=== PATIENT | female | born 1995 | race Caucasian/White ===

== ENCOUNTER → 2016-11-13 | Outpatient (CLI) | payer BC | LOC: CARD 14:08 | PROVIDERS: ATTEND Internal Medicine Cardiovascular Disease | DX: R00.2 Palpitations (principal); I10 Essential (primary) hypertension; Z82.41 Family history of sudden cardiac death | CPT/HCPCS: 93225; 93226 ==

== ENCOUNTER → 2016-12-03 | Outpatient (CLI) | payer BC | LOC: CARD 08:32 | PROVIDERS: ATTEND Internal Medicine Cardiovascular Disease | DX: I10 Essential (primary) hypertension (principal); R00.2 Palpitations; Z82.41 Family history of sudden cardiac death | CPT/HCPCS: 93306; 93351 ==

== ENCOUNTER → 2018-08-05 | Outpatient (CLI) | payer BC ==
--- NOTE | 2018-08-05 13:07 | Diagnostic Imaging Report ---
REASON FOR EXAM: RUQ ABD PAIN. COMPARISON: None. TECHNIQUE: Grayscale and Doppler ultrasound performed in the right upper quadrant of the abdomen to evaluate the liver and gallbladder. FINDINGS: The liver is normal in size and shape. The liver echogenicity is within normal limits. There are no focal lesions. No intrahepatic biliary dilatation is present. The common bile duct is not dilated and measures 4 mm. The main portal vein is hepatopetal. There is no evidence of cholelithiasis, gallbladder wall thickening or pericholecystic fluid. Sonographic Dejesus's sign is negative. The visualized portions of the head of the pancreas are within normal limits. The body and tail of the pancreas are not well visualized due to overlying bowel gas. The visualized portions of the IVC appear normal. The right kidney measures approximately 10.2 cm in length and has a normal appearance. IMPRESSION: 1. No cholelithiasis or acute cholecystitis. No liver or gallbladder abnormality detected. Dictated by: Dictated on workstation # [id number]
== END ==
LOC: RAD 10:40
PROVIDERS: ATTEND Nurse Practitioner Primary Care
DX: R10.11 Right upper quadrant pain (principal)
CPT/HCPCS: 76705

== ENCOUNTER → 2020-03-31 | Outpatient (CLI) | payer BC ==
--- NOTE | 2020-03-31 15:06 | Diagnostic Imaging Report ---
PROCEDURE: US Non-ob pelvis comp/trans. TECHNIQUE: Multiple realtime grayscale images were obtained of the pelvis in various projections endovaginally. Transabdominal imaging was also performed. INDICATION: Pelvic and perineal pain. COMPARISON: 06/01/2013. FINDINGS: The uterus measures 8.0 x 3.2 x 5.6 cm. The myometrium is normal in echogenicity without discrete mass. There is an echogenic IUD appropriately positioned in the mid upper endometrial cavity. This results in obscuration of the endometrium. The right ovary measures 3.2 x 2.1 x 2.0 cm. There are normal follicles present throughout the right ovary measuring less than a centimeter in size. Blood flow is present in the right ovary by color Doppler imaging. The left ovary is not seen due to surrounding bowel gas. Imaging of the left adnexa shows no concerning mass or fluid. IMPRESSION: 1. IUD is appropriately positioned within the uterus. 2. Normal right ovary. 3. Left ovary is not visualized due to surrounding bowel gas. Dictated by: Dictated on workstation # [id number]
== END ==
LOC: RAD 14:15
PROVIDERS: ATTEND Obstetrics & Gynecology
DX: R10.2 Pelvic and perineal pain (principal); R14.3 Flatulence
CPT/HCPCS: 76830; 76856

== ENCOUNTER → 2021-10-02 | Outpatient (CLI) | payer BC ==
--- NOTE | 2021-10-02 16:58 | Diagnostic Imaging Report ---
INDICATION: anatomy survey. TECHNIQUE: Multiple real-time grayscale images were obtained over the gravid uterus. COMPARISON: None. FINDINGS: The cervix is not well seen but grossly measures 3 cm in length. Placenta is posterior and fundal in position and there is no previa. Due to advanced gestational age, maternal adnexa are suboptimally evaluated. The following structures are visualized and normal: Cerebellar, cisterna magna, cerebral ventricles, four-chamber heart, umbilical cord insertion, stomach, left ventricular outflow tract, and spine. Biometrical measurements are as follows: Biparietal 4.92 cm, age 21 weeks 0 days. Head circumference 18.07 cm, age 20 weeks 4 days. Abdominal circumference 14.48 cm, age 19 weeks 6 days. Femur length 3.25 cm, age 20 weeks 1 days. Sonographic estimate age: 20 weeks 3 days. Sonographic estimated date of delivery: 02/16/2022. Estimated Weight: 329 gm (+/- 48 gm). LMP percentile: 48%. heart rate: 142 beats per minute. number: 1 of 1. IMPRESSION: Single live intrauterine has normal anatomy survey. Dictated by: Dictated on workstation # [id number]
== END ==
LOC: RAD 13:00
PROVIDERS: ATTEND Nurse Practitioner Women's Health
DX: Z34.02 Encounter for supervision of normal first pregnancy, second trimester (principal); Z3A.20 20 weeks gestation of pregnancy
CPT/HCPCS: 76805

== ENCOUNTER 2021-12-13 10:09 | Outpatient (CLI) | payer OTHER ==
[~2021-12-13] VITALS: Ht 178.2 cm; Wt 78.2 kg
[2021-12-13 10:45] VITALS: BP 113/72
[2021-12-13] MEDS ORDERED: ceFAZolin INJECTION 1,000 MG in NS (IVPB) 50 ML IV ONE (11:15)
[2021-12-13 11:28] LABS: BILIRUBIN,URINE NEGATIVE (NEGATIVE); CLARITY,URINE CLEAR; COLOR,URINE YELLOW; GLUCOSE, URINE (UA) NEGATIVE (NEGATIVE); KETONES,URINE NEGATIVE (NEGATIVE); LEUKOCYTE ESTERASE ,URINE NEGATIVE (NEGATIVE); NITRITE,URINE NEGATIVE (NEGATIVE); PH,URINE 7.5 (5-9); PROTEIN,URINE NEGATIVE (NEGATIVE)
[2021-12-13 11:44] LABS: BACTERIA,URINE NEGATIVE /HPF; RBC,URINE RARE /HPF; SQUAMOUS EPITHELIAL CELL,UR RARE /HPF; WBC,URINE RARE /HPF
[2021-12-13 12:29] LABS: BASOPHILS % (AUTO) 0 % (0-10); EOSINOPHILS # (AUTO) 0.1 10^3/uL (0.0-0.3); EOSINOPHILS % (AUTO) 1 % (0-10); HEMATOCRIT 32 % (35-52); HEMOGLOBIN 10.7 g/dL (11.5-16.0); LYMPHOCYTES # (AUTO) 1.7 10^3/uL (1.0-4.0); LYMPHOCYTES % (AUTO) 16 % (12-44); MEAN CORPUSCULAR HEMOGLOBIN 31 pg (25-34); MEAN CORPUSCULAR HGB CONC 33 g/dL (32-36); MEAN CORPUSCULAR VOLUME 93 fL (80-99); MEAN PLATELET VOLUME 9.3 fL (9.0-12.2); MONOCYTES # (AUTO) 0.7 10^3/uL (0.0-1.0); MONOCYTES % (AUTO) 6 % (0-12); NEUTROPHILS # (AUTO) 8.5 10^3/uL (1.8-7.8); NEUTROPHILS % (AUTO) 77 % (42-75); PLATELET COUNT 208 10^3/uL (130-400); WHITE BLOOD COUNT 11.1 10^3/uL (4.3-11.0)
[2021-12-13] MEDS: morphine INJ 4 MG/ML 1 ML (VIAL/SYRINGE) IVP PRN ×2 (12:40→15:30)
[2021-12-13 12:46] LABS: EOSINOPHILS % (MANUAL) 1 %; LYMPHOCYTES % (MANUAL) 13 %; MONOCYTES % (MANUAL) 6 %; NEUTROPHILS % (MANUAL) 80 %; RBC MORPH NORMAL
[2021-12-13] MEDS ORDERED: ONDANSETRON 4 MG/2 ML (SDV) Z0FRAN IVP PRN (13:00)
[2021-12-13] MEDS: NS IV 1000 ML 1,000 ML IV SCH ×2 (13:03→16:15)
[2021-12-13 13:20] VITALS: BP 117/68
[2021-12-13 14:39] VITALS: BP 113/72
[2021-12-13 15:10] LABS: ALBUMIN 3.2 GM/DL (3.2-4.5); BILIRUBIN,TOTAL 0.2 MG/DL (0.1-1.0); CALCIUM 8.7 MG/DL (8.5-10.1); CREATININE SERUM 0.65 MG/DL (0.60-1.30); POTASSIUM 3.5 MMOL/L (3.6-5.0); TOTAL PROTEIN 6.2 GM/DL (6.4-8.2)
[2021-12-13 15:30] VITALS: BP 111/67
--- NOTE | 2021-12-13 16:43 | History & Physical-OB ---
OB - Chief Complaint & HPI Date/Time Date of Admission: Date of Admission: Date seen by a Provider: Dec 13, 2021 Time Seen by a Provider: 12:55 Chief Complaint/History OB-Reason for Admission/Chief: Hx : 1 Hx Para: 0 Expected Date of Delivery: Feb 19, 2022 Gestational Age in Weeks: 30 Gestational Age in Days: 2 Other reason for admission: Patient presents with bilateral flank pains and micro hematuria Admission Nurse Assessment Rev: Yes Allergies and Home Medications Allergies Coded Allergies: Sulfa (Sulfonamide Antibiotics) (Verified Allergy, Severe, Anaphylaxis, 12/13/21) codeine (Verified Allergy, Mild, Itching, 12/13/21) Pt reports itching and vomiting with Codeine after wisdom teeth removal in 2010 Patient Home Medication List Home Medication List Reviewed: Yes OB - History Hx of Present Care: Yes Ultrasounds: Normal mid trimester US Obstetrical Complications: None Medical Complications: None Obstetrical History Hx : 1 Hx Para: 0 Hx Total # of Abortions (Spona: 0 Patient Past Medical History n/a Social History/Family History Alcohol Use: Denies Use Recreational Drug Use: No 2nd Hand Smoke Exposure: No Immunizations Influenza Vaccine Up-to-Date: Yes; Up-to-Date OB - Admission Exam Physical Exam Vitals: Vital Signs 12/13/21 15:30 Temp 36.3 Pulse 82 Resp 16 B/P (MAP) 111/67 (82) Pulse Ox 100 O2 Delivery Room Air HEENT: NCAT Heart: Rhythm Normal Lungs: Crackles Abdomen: Gravid Extremities: Normal Reflexes: Normal Heart Rate: 130's Accelerations: Accelerations Present Alf Variability: Average (6-25) Contractions on Admission: >10 Minutes Apart Intensity: Mild Labs Laboratory Tests Test 12/13/21 10:00 12/13/21 12:15 12/13/21 14:42 Range/Units Urine Color YELLOW Urine Clarity CLEAR Urine pH 7.5 5-9 Urine Specific [place] 1.010 L 1.016-1.022 Urine Protein NEGATIVE NEGATIVE Urine Glucose (UA) NEGATIVE NEGATIVE Urine Ketones NEGATIVE NEGATIVE Urine Nitrite NEGATIVE NEGATIVE Urine Bilirubin NEGATIVE NEGATIVE Urine Urobilinogen 0.2 < = 1.0 MG/DL Urine Leukocyte Esterase NEGATIVE NEGATIVE Urine RBC (Auto) NEGATIVE NEGATIVE Urine RBC RARE /HPF Urine WBC RARE /HPF Urine Squamous Epithelial Cells RARE /HPF Urine Crystals NONE /LPF Urine Bacteria NEGATIVE /HPF Urine Casts NONE /LPF Urine Mucus NEGATIVE /LPF Urine Culture Indicated NO White Blood Count 11.1 H 4.3-11.0 10^3/uL Red Blood Count 3.46 L 3.80-5.11 10^6/uL Hemoglobin 10.7 L 11.5-16.0 g/dL Hematocrit 32 L 35-52 % Mean Corpuscular Volume 93 80-99 fL Mean Corpuscular Hemoglobin 31 25-34 pg Mean Corpuscular Hemoglobin Concent 33 32-36 g/dL Red Cell Distribution Width 12.8 10.0-14.5 % Platelet Count 208 130-400 10^3/uL Mean Platelet Volume 9.3 9.0-12.2 fL Immature Granulocyte % (Auto) 1 % Neutrophils (%) (Auto) 77 H 42-75 % Lymphocytes (%) (Auto) 16 12-44 % Monocytes (%) (Auto) 6 0-12 % Eosinophils (%) (Auto) 1 0-10 % Basophils (%) (Auto) 0 0-10 % Neutrophils # (Auto) 8.5 H 1.8-7.8 10^3/uL Lymphocytes # (Auto) 1.7 1.0-4.0 10^3/uL Monocytes # (Auto) 0.7 0.0-1.0 10^3/uL Eosinophils # (Auto) 0.1 0.0-0.3 10^3/uL Basophils # (Auto) 0.0 0.0-0.1 10^3/uL Immature Granulocyte # (Auto) 0.1 0.0-0.1 10^3/uL Neutrophils % (Manual) 80 % Lymphocytes % (Manual) 13 % Monocytes % (Manual) 6 % Eosinophils % (Manual) 1 % Blood Morphology Comment NORMAL Sodium Level 137 135-145 MMOL/L Potassium Level 3.5 L 3.6-5.0 MMOL/L Chloride Level 106 98-107 MMOL/L Carbon Dioxide Level 20 L 21-32 MMOL/L Anion Gap 11 5-14 MMOL/L Blood Urea Nitrogen 4 L 7-18 MG/DL Creatinine 0.65 0.60-1.30 MG/DL Estimat Glomerular Filtration Rate 124 BUN/Creatinine Ratio 6 Glucose Level 94 70-105 MG/DL Calcium Level 8.7 8.5-10.1 MG/DL Corrected Calcium 9.3 8.5-10.1 MG/DL Total Bilirubin 0.2 0.1-1.0 MG/DL Aspartate Amino Transf (AST/SGOT) 19 5-34 U/L Alanine Aminotransferase (ALT/SGPT) 21 0-55 U/L Alkaline Phosphatase 121 40-136 U/L Total Protein 6.2 L 6.4-8.2 GM/DL Albumin 3.2 3.2-4.5 GM/DL OB - Assessment/Plan/Diagnosis Assessment Assessment: observation Admission Dx 26 yo G1 @ 30 weeks gestation Admission Status: Observation Reason for Inpatient Admission: Neprholithiasis Plan Plan: Other Other Plan IVF bolus Pain control Prophylactic antibiotics WIll discharge if improvement in symptoms. LOTUS VASQUEZ DO Dec 13, 2021 4:43 pm
[2021-12-13] MEDS ORDERED: CEPH500T PO (16:46)
[2021-12-13] MEDS ORDERED: ACHD5005 PO (16:46)
--- NOTE | 2021-12-13 17:04 | Diagnostic Imaging Report ---
PROCEDURE: US Renal Bilateral. TECHNIQUE: Multiple real-time grayscale images were obtained over the kidneys in various projections bilaterally. INDICATION: Flank pain Right kidney measures 11.9 x 6.1 x 5.0 cm. There is grade 2 hydronephrosis of the right kidney. There is a 6 mm calculus in lower pole calyx of the right kidney. Left kidney measures 11.0 x 5.8 x 4.3 cm. There is grade 1 hydronephrosis of the left kidney. There appears to be a 6 mL calculus in lower pole calyx of left kidney. Neither ureteral jet was seen in the bladder. IMPRESSION: Bilateral hydronephrosis with bilateral nephrolithiasis. Hydronephrosis appears to be slightly worse on the right than on the left. Dictated by: Dictated on workstation # [id number]
== END 2021-12-13 17:30 | disposition home or self-care (01) ==
LOC: WSo 10:09 → LDRP 10:09 → WSo 17:30
PROVIDERS: ATTEND Obstetrics & Gynecology
DX: N13.30 Unspecified hydronephrosis (principal); N20.0 Calculus of kidney
CPT/HCPCS: 36415; 76770; 80053; 81000; 85007; 85027

== ENCOUNTER 2021-12-28 12:30 | Outpatient (RCR) | payer OTHER ==
[~2021-12-28] VITALS: Ht 167.7 cm; Wt 78.2 kg
[~2021-12-28 12:30] MED LIST: ACHD5005 PO; CEPH500T PO
[2021-12-28] MEDS ORDERED: HYDROCORTISONE 100 MG/2 ML (Solu-CORTEF) VIAL IV PRN (13:00)
[2021-12-28] MEDS ORDERED: IRON DEXTRAN 25 MG/NS 6.25 ML TOTAL VOLUME IV ONE ×3 (13:00)
[2021-12-28] MEDS ORDERED: diphenhydrAMINE 50 MG/ML INJ (BENADRYL) IV PRN (13:00)
[2021-12-28] MEDS ORDERED: RT-ALBUTEROL SULF 2.5 MG/3 ML PRE-MIX VIAL IH PRN (13:00)
[2021-12-28] MEDS ORDERED: EPINEPHrine INJECTION 1 MG/ML AMP IM PRN (13:00)
[2021-12-28] MEDS ORDERED: IRON DEXTRAN 1,000 MG/NS 250 ML IVPB IV ONE ×2 (13:15)
[2021-12-28 13:18] VITALS: BP 127/69
[2021-12-28 13:23] VITALS: BP 126/81
[2021-12-28 13:30] VITALS: BP 127/80
[2021-12-28 13:45] VITALS: BP 130/81
[2021-12-28 14:00] VITALS: BP_SYST 121; BP_SYST 122; BP_DIAS 75
== END 2022-01-16 | disposition home or self-care (01) ==
LOC: SDC 12:30
PROVIDERS: ATTEND Obstetrics & Gynecology
DX: D64.9 Anemia, unspecified (principal)

== ENCOUNTER 2022-02-12 18:55 | Inpatient (IN) | payer OTHER ==
[~2022-02-12] VITALS: Ht 177.8 cm; Wt 84.1 kg
[2022-02-12 19:10] VITALS: BP 138/85
[2022-02-12] MEDS ORDERED: TERBUTALINE INJ 1 MG/ML (BRETHINE) AMP SC PRN (19:45)
[2022-02-12] MEDS ORDERED: NS IV 1000 ML 1,000 ML IV SCH (19:45)
[2022-02-12 20:00] VITALS: BP 138/85
[2022-02-12 20:15] LABS: BILIRUBIN,URINE NEGATIVE (NEGATIVE); CLARITY,URINE CLEAR; COLOR,URINE YELLOW; GLUCOSE, URINE (UA) NEGATIVE (NEGATIVE); KETONES,URINE NEGATIVE (NEGATIVE); LEUKOCYTE ESTERASE ,URINE NEGATIVE (NEGATIVE); NITRITE,URINE NEGATIVE (NEGATIVE); PROTEIN,URINE NEGATIVE (NEGATIVE)
[2022-02-12] MEDS: D5 LR IV SOLUTION 1,000 ML IV SCH (20:29)
[2022-02-12 20:32] LABS: BACTERIA,URINE FEW /HPF; SQUAMOUS EPITHELIAL CELL,UR 0-2 /HPF
[2022-02-12 20:35] VITALS: BP 124/78
[2022-02-12 21:27] LABS: BASOPHILS % (AUTO) 0 % (0-10); EOSINOPHILS % (AUTO) 0 % (0-10); HEMATOCRIT 34 % (35-52); HEMOGLOBIN 11.7 g/dL (11.5-16.0); LYMPHOCYTES # (AUTO) 1.9 10^3/uL (1.0-4.0); LYMPHOCYTES % (AUTO) 22 % (12-44); MEAN CORPUSCULAR HEMOGLOBIN 30 pg (25-34); MEAN CORPUSCULAR HGB CONC 34 g/dL (32-36); MEAN CORPUSCULAR VOLUME 88 fL (80-99); MEAN PLATELET VOLUME 9.4 fL (9.0-12.2); MONOCYTES # (AUTO) 0.4 10^3/uL (0.0-1.0); MONOCYTES % (AUTO) 4 % (0-12); NEUTROPHILS # (AUTO) 6.5 10^3/uL (1.8-7.8); NEUTROPHILS % (AUTO) 73 % (42-75); PLATELET COUNT 236 10^3/uL (130-400); WHITE BLOOD COUNT 8.9 10^3/uL (4.3-11.0)
[2022-02-12] MEDS ORDERED: CATHETER FLUSH 10 ML SYR IV SCH (22:00)
[2022-02-12] MEDS ORDERED: HYDROmorphone 2 MG/ML VIAL (DILAUDID) IV ONE (22:15)
[2022-02-12 22:25] VITALS: BP 120/81
[2022-02-12] MEDS: ONDANSETRON 4 MG/2 ML (SDV) Z0FRAN IVP PRN (22:32)
[2022-02-13] VITALS (74 sets, daily range): BP systolic 102–164; BP diastolic 41–93
[2022-02-13] MEDS: ONDANSETRON 4 MG/2 ML (SDV) Z0FRAN IVP PRN (01:35)
[2022-02-13] MEDS ORDERED: fentaNYL 2 mcg/ml BUPIVA 0.125 100 ML ONE (02:02)
[2022-02-13] MEDS: fentaNYL 2 mcg/ml BUPIVA 0.125 100 ML EPI SCH ×2 (02:52→10:30)
[2022-02-13] MEDS ORDERED: METOCLOPRAMIDE INJ 10 MG/2 ML (REGLAN) IV PRN (03:00)
[2022-02-13] MEDS ORDERED: NALOXONE 0.4 MG/ML 1 ML (NARCAN) VIAL IV PRN ×3 (03:00→16:30)
[2022-02-13] MEDS ORDERED: diphenhydrAMINE 50 MG/ML INJ (BENADRYL) IV PRN (03:00)
[2022-02-13] MEDS ORDERED: LACTATED RINGERS 1,000 ML IV SCH (03:00)
[2022-02-13] MEDS ORDERED: ONDANSETRON 4 MG/2 ML (SDV) Z0FRAN IV PRN (03:00)
[2022-02-13] MEDS: D5 LR IV SOLUTION 1,000 ML IV SCH ×2 (03:50→11:47)
[2022-02-13] MEDS ORDERED: OXYTOCIN PRE-MIX DRIP 500 ML IV ONE ×2 (07:45→16:14)
[2022-02-13] MEDS ORDERED: LIDOCAINE 1% INJ 20 ML VIAL ONE (07:45)
[2022-02-13] MEDS ORDERED: OXYTOCIN PRE-MIX DRIP 500 ML IV SCH ×2 (13:15→16:30)
[2022-02-13] MEDS ORDERED: PROMETHAZINE INJ 25 MG/ML (PHENERGAN) AMP IVP ONE (14:15)
[2022-02-13] MEDS ORDERED: CITRIC ACID/SOB CIT (BICITRA) 30 ML UDC ONE (16:03)
[2022-02-13] MEDS ORDERED: FAMOTIDINE 20MG/2ML IV (PEPCID) ONE (16:03)
[2022-02-13] MEDS ORDERED: METOCLOPRAMIDE INJ 10 MG/2 ML (REGLAN) ONE (16:03)
[2022-02-13] MEDS ORDERED: ceFAZolin INJECTION 2,000 MG ONE (16:03)
[2022-02-13] MEDS ORDERED: BUPIVACAINE 0.5% 30 ML (SENSORCAINE) VIAL ONE (16:05)
[2022-02-13] MEDS ORDERED: fentaNYL INJ 100 MCG/2 ML AMP ONE (16:05)
[2022-02-13] MEDS ORDERED: LIDOCAINE PF 2% 5 ML (XYLOCAINE) VIAL ONE ×2 (16:05→16:58)
[2022-02-13] MEDS ORDERED: NS (IVPB) 50 ML ONE (16:08)
--- NOTE | 2022-02-13 16:22 | History & Physical-OB ---
OB - Chief Complaint & HPI Date/Time Date of Admission: Date of Admission: Feb 12, 2022 at 18:55 Date seen by a Provider: Feb 13, 2022 Time Seen by a Provider: 07:15 Chief Complaint/History OB-Reason for Admission/Chief: Induction of Labor Hx : 1 Hx Para: 0 Expected Date of Delivery: Feb 19, 2022 Gestational Age in Weeks: 39 Gestational Age in Days: 0 Admission Nurse Assessment Rev: Yes History of Labs GBS neg Allergies and Home Medications Allergies Coded Allergies: Sulfa (Sulfonamide Antibiotics) (Verified Allergy, Severe, Anaphylaxis, 12/13/21) codeine (Verified Allergy, Mild, Itching, 12/13/21) Pt reports itching and vomiting with Codeine after wisdom teeth removal in 2010 iron dextran complex (Verified Allergy, Unknown, Itching, 12/28/21) Patient Home Medication List Home Medication List Reviewed: Yes Cephalexin (Cephalexin) 500 Mg Tablet, 500 MG PO QID Prescribed by: LOTUS VASQUEZ on 12/13/21 164 Hydrocodone/Acetaminophen (Hydrocodone-Acetamin 5-325 mg) 5 Mg-325 Mg Tablet, 1 TAB PO Q4H PRN for PAIN-MODERATE (5-7) Prescribed by: LOTUS VASQUEZ on 12/13/21 1646 OB - History Hx of Present Care: Yes Ultrasounds: Normal mid trimester US Obstetrical Complications: None Medical Complications: Genitourinary (nephrolithiasis) Patient Past Medical History n/a Social History/Family History 2nd Hand Smoke Exposure: No Immunizations Influenza Vaccine Up-to-Date: Yes; Up-to-Date OB - Admission Exam Physical Exam Vitals: Vital Signs 02/13/22 02/13/22 02/13/22 03:28 13:03 14:45 Temp 36.6 Pulse 88 Resp 18 B/P (MAP) 152/80 (104) Pulse Ox 100 O2 Delivery Room Air HEENT: NCAT Heart: Rhythm Normal Lungs: Clear Abdomen: Gravid Extremities: Normal Reflexes: Normal Cervical Dilatation: 1cm Effacement: 75% Station: -2 Membranes: Intact Heart Rate: 130's Accelerations: Accelerations Present Decelerations: No Decelerations Short Term Variability: Present [facility] Variability: Average (6-25) Contractions on Admission: 6-10 Minutes Apart Intensity: Moderate Bernal Scoring Tool (Modified) Dilation (cm): 1-2cm (1) Effacement (%): 51-79% (2) Descent/Station: -2 (1) Cervix Consistency: Soft (2) Cervix Position: Anterior (2) Bernal Score: 8 Labs Laboratory Tests Test 02/12/22 19:00 02/12/22 20:18 02/12/22 21:10 Range/Units Urine Color YELLOW Urine Clarity CLEAR Urine pH 7.0 5-9 Urine Specific [place] 1.015 L 1.016-1.022 Urine Protein NEGATIVE NEGATIVE Urine Glucose (UA) NEGATIVE NEGATIVE Urine Ketones NEGATIVE NEGATIVE Urine Nitrite NEGATIVE NEGATIVE Urine Bilirubin NEGATIVE NEGATIVE Urine Urobilinogen 0.2 < = 1.0 MG/DL Urine Leukocyte Esterase NEGATIVE NEGATIVE Urine RBC (Auto) TRACE-I H NEGATIVE Urine RBC 2-5 H /HPF Urine WBC NONE /HPF Urine Squamous Epithelial Cells 0-2 /HPF Urine Crystals NONE /LPF Urine Bacteria FEW H /HPF Urine Casts NONE /LPF Urine Mucus NEGATIVE /LPF Urine Culture Indicated YES White Blood Count 8.9 4.3-11.0 10^3/uL Red Blood Count 3.87 3.80-5.11 10^6/uL Hemoglobin 11.7 11.5-16.0 g/dL Hematocrit 34 L 35-52 % Mean Corpuscular Volume 88 80-99 fL Mean Corpuscular Hemoglobin 30 25-34 pg Mean Corpuscular Hemoglobin Concent 34 32-36 g/dL Red Cell Distribution Width 12.7 10.0-14.5 % Platelet Count 236 130-400 10^3/uL Mean Platelet Volume 9.4 9.0-12.2 fL Immature Granulocyte % (Auto) 1 % Neutrophils (%) (Auto) 73 42-75 % Lymphocytes (%) (Auto) 22 12-44 % Monocytes (%) (Auto) 4 0-12 % Eosinophils (%) (Auto) 0 0-10 % Basophils (%) (Auto) 0 0-10 % Neutrophils # (Auto) 6.5 1.8-7.8 10^3/uL Lymphocytes # (Auto) 1.9 1.0-4.0 10^3/uL Monocytes # (Auto) 0.4 0.0-1.0 10^3/uL Eosinophils # (Auto) 0.0 0.0-0.3 10^3/uL Basophils # (Auto) 0.0 0.0-0.1 10^3/uL Immature Granulocyte # (Auto) 0.1 0.0-0.1 10^3/uL OB - Assessment/Plan/Diagnosis Assessment Assessment: induction of labor Admission Dx 26 yo @ 39 weeks Elective IOL GBS neg Admission Status: Inpatient Order (span 2 midnights) Reason for Inpatient Admission: 39 induction of labor Plan Plan: Induction Induction Method: per Misoprostol Protocol LOTUS VASQUEZ DO Feb 13, 2022 16:22
--- NOTE | 2022-02-13 16:26 | Progress Note ---
Standard Progress Note Progress Notes/Assess & Plan Date Seen by a Provider: Feb 13, 2022 Time Seen by a Provider: 16:00 Progress/Assessment & Plan Patient admitted last night for elective IOL. Started on PO misoprostol overnight, given 2 doses. Received an epidural approx 2 am. This morning at approx 735, 7 cm dialated SROM had occured overnight. She progressed to 9 cm at approx 11am, and made no change of the following 5 hrs despite adequate contraction pattern and pitocin augmentation. Due to suspected CPD, and failure to progress patient requested to proceed with based on adequate indication. Risk reviewed and all questions answered. LOTUS VASQUEZ DO Feb 13, 2022 16:26
--- NOTE | 2022-02-13 16:28 | Discharge Inst-Women's Service ---
Discharge Inst-Women's Serv Depart Medication/Instructions New, Converted or Re-Newed RX: Transmitted to Pharmacy Final Diagnosis POD 2 PLTCS Problems Reviewed?: Yes Consults/Follow Up Additional Follow Up: Yes Orders/Referrals Dr. Vuong in 7-10 days and in 6 weeks Activity Activity: Activity as Tolerated Driving Instructions: No Driving for 1 Week NO SMOKING: NO SMOKING Nothing Inside Vagina: No Douching, No [place], No Tampons Diet Discharge Diet: No Restrictions Symptoms to Report to : Bleeding Excessive, Pain Increased, Fever Over 101 Degrees F, Vaginal Bleeding Increase, Questions/Concerns For Any Problems or Questions: Contact Your Physician Skin/Wound Care Infection Signs and Symptoms: Increased Redness, Foul Odor of Wound, Increased Drainage, Skin Itchy or Has a Rash, Increased Swelling, Temperature Above 101 F Operative Area Clean and Dry: Keep Incision Clean/Dry Stitches/[place]/Dermabond: Dermabond, Care of Stitches Bathing Instructions: LOTUS Meng DO Feb 13, 2022 16:28
[2022-02-13] MEDS ORDERED: TETANUS,DIPTH,PERTUSS P/F (BOOSTRIX) 0.5 ML VIAL IM SCH (16:30)
[2022-02-13] MEDS ORDERED: ACHD5005 PO (16:30)
[2022-02-13] MEDS ORDERED: DOCU100C37 PO (16:30)
[2022-02-13] MEDS ORDERED: MEASLES,MUMPS,RUBELLA 1 EA INJ SC SCH (16:30)
[2022-02-13] MEDS ORDERED: IBUP-844 PO (16:30)
[2022-02-13] MEDS ORDERED: ONDANSETRON 4 MG/2 ML (SDV) Z0FRAN IVP PRN (16:30)
[2022-02-13] MEDS ORDERED: ceFAZolin INJECTION 2,000 MG IV ONE (16:59)
[2022-02-13] MEDS ORDERED: MIDAZOLAM 2 MG/2 ML (VERSED) VIAL ONE (17:05)
[2022-02-13] MEDS ORDERED: LACTATED RINGERS 1,000 ML IV PRN ×2 (17:45)
[2022-02-13] MEDS ORDERED: FAMOTIDINE 20MG/2ML IV (PEPCID) IV ONE (17:45)
[2022-02-13] MEDS ORDERED: METOCLOPRAMIDE INJ 10 MG/2 ML (REGLAN) IV ONE (17:45)
[2022-02-13] MEDS ORDERED: CITRIC ACID/SOB CIT (BICITRA) 30 ML UDC PO ONE (17:45)
[2022-02-13] MEDS: KETOROLAC 30 MG/ML VIAL IV SCH (19:36)
[2022-02-13] MEDS: DOCUSATE SODIUM 100 MG (COLACE) CAP PO SCH (20:00)
[2022-02-13] MEDS: HYDROcodone/APAP 5 MG/325 MG (LORTAB) TAB PO PRN (20:57)
[2022-02-13] MEDS ORDERED: WITCH HAZEL(TUCKS) 40 EA JAR TOP PRN (21:45)
[2022-02-14 00:10] VITALS: BP 126/71
[2022-02-14] MEDS: KETOROLAC 30 MG/ML VIAL IV SCH ×3 (02:52→16:11)
[2022-02-14 03:00] VITALS: BP 134/76
--- NOTE | 2022-02-14 03:49 | OPERATIVE REPORT ---
PREOPERATIVE DIAGNOSES: 1. A 26-year-old at 39 weeks gestation. 2. Cephalopelvic disproportion. 3. Failure to progress. POSTOPERATIVE DIAGNOSES: 1. A 26-year-old at 39 weeks gestation. 2. Cephalopelvic disproportion. 3. Failure to progress. PROCEDURE: Primary low transverse section. SURGEON: Cas Vasquez DO EXTENSION FORESTER: Preethi Cope DNP, is necessary for manipulation, retraction throughout the procedure ANESTHESIA: Epidural, which was bolused. ESTIMATED BLOOD LOSS: 400 mL URINE OUTPUT: 190 mL clear at end of the procedure. FLUIDS: 900 mL lactated Ringer's solution. FINDINGS: Live female weighing 7 pounds 2 ounces, Apgars of 7 and 9. Grossly normal appearing uterus, bilateral fallopian tubes and ovaries. SPECIMENS SENT: None. INDICATIONS FOR PROCEDURE: This is a 26-year-old female is patient, who was admitted last night for induction of labor. Please see preoperative note for complete details pertaining to the patient's delivery, labor in detail. Once a diagnosis of failure to progress was reached, the patient was requesting to proceed with . I discussed with the patient, risk of all included with a . After all of her questions were answered, she was agreeable to proceed. Consent was obtained and the patient was taken to the operating room. OPERATIVE REPORT IN DETAIL: Once in the operating room, epidural analgesia was bolused and found to be adequate, was placed in a supine position with leftward tilt, prepped and draped in normal sterile fashion. A timeout was performed. Anesthesia was tested. I then make a Pfannenstiel skin incision with a knife and carried down to underlying fascia using Bovie cautery. The fascial incision extended laterally using Bovie cautery. Superior aspect of the fascial incision was then grasped with Yayo clamps, tented up and dissected off the underlying rectus muscles. The inferior aspect of the fascial incision was then grasped with Yayo clamps, tented up, and dissected off the underlying rectus muscles. The rectus muscles were dissected down to the midline using sharp dissection. We exposed the peritoneum, which was entered bluntly and extended using blunt traction. An [place] ring retractor was placed in the peritoneal incision, which offers excellent lateral sidewall retraction. I identified the lower uterine segment, which was found to be thinned out. I make a low transverse incision to the vesicouterine peritoneum and bluntly dissected off the lower uterine segment, creating a bladder flap. I then proceeded with myotomy until membranes were visualized, at which point, I extended the incision laterally and superiorly using bandage scissors. Amniotomy was performed in the process of doing this through the incision and the 's head was found in the vertex presentation. With gentle fundal pressure, the 's head was elevated up to the incision, which delivered through the incision. The nares and oropharynx were bulb suctioned. Anterior and posterior shoulders were delivered. The was brought to the operative field where the cord was doubly clamped and cut and was handed off to waiting nurses in attendance. Cord blood was collected. Three-vessel cord, intact placenta was delivered spontaneously thereafter. IV Pitocin was initiated to facilitate uterine contraction. Uterine fundus was firm with bimanual massage. The uterus was then exteriorized and cleared of all endometrial clots and debris. I then proceeded with closing the uterine incision using 0 Vicryl suture in a running locked fashion. Second layer of imbricating 0 Monocryl was placed. Excellent hemostasis was noted. After doing this, I then placed the uterus back in the pelvis and copiously irrigated the pelvis with normal saline. Once again, there was no active bleeding noted from any of my dissection planes. I placed Interceed antiadhesive over my low transverse incision. I then removed the [place] ring retractor and proceeded with closing the peritoneum using 3-0 Vicryl suture in a running fashion. The rectus muscles were reapproximated using 3-0 Vicryl suture in interrupted fashion. The fascia was reapproximated using 0 Vicryl suture in a running fashion. The subcutaneous tissue was reapproximated using 3-0 plain in interrupted subcutaneous stitch and the skin was reapproximated using 4-0 Monocryl running subcuticular. Dermabond was applied to incision and sterile dressing with adhesive white tape. The patient tolerated the procedure well and sent to recovery in stable condition. Lap and sponge counts were correct at the end of procedure. Instrument counts correct as well. Two grams of Ancef given preoperatively for infection prophylaxis. Job ID: [id number] DocumentID: [id number] Dictated Date: 02/13/2022 17:28:58 Game Trapper Date: 02/14/2022 03:47:00 Dictated By: CAS VASQUEZ DO MTDD
[2022-02-14] MEDS: HYDROcodone/APAP 5 MG/325 MG (LORTAB) TAB PO PRN ×3 (04:30→19:35)
[2022-02-14 06:02] LABS: BASOPHILS % (AUTO) 0 % (0-10); EOSINOPHILS % (AUTO) 0 % (0-10); HEMATOCRIT 31 % (35-52); HEMOGLOBIN 10.6 g/dL (11.5-16.0); LYMPHOCYTES # (AUTO) 1.6 10^3/uL (1.0-4.0); LYMPHOCYTES % (AUTO) 11 % (12-44); MEAN CORPUSCULAR HEMOGLOBIN 31 pg (25-34); MEAN CORPUSCULAR HGB CONC 34 g/dL (32-36); MEAN CORPUSCULAR VOLUME 89 fL (80-99); MEAN PLATELET VOLUME 9.7 fL (9.0-12.2); MONOCYTES # (AUTO) 0.7 10^3/uL (0.0-1.0); MONOCYTES % (AUTO) 5 % (0-12); NEUTROPHILS # (AUTO) 12.4 10^3/uL (1.8-7.8); NEUTROPHILS % (AUTO) 83 % (42-75); PLATELET COUNT 233 10^3/uL (130-400); WHITE BLOOD COUNT 14.8 10^3/uL (4.3-11.0)
--- NOTE | 2022-02-14 07:11 | Postpartum Progress Note ---
OLVIN GLYNN 02/14/22 0711: Note Note Day # 2 Subjective: Patient is without complaints. Ambulating, voiding. Tolerating a regular diet without nausea or vomiting. Normal lochia. Pain is well controlled with oral pain medications. Objective: Physical Exam: General - Alert and oriented, no apparent distress Abdomen - Soft, appropriately tender to palpation, non-distended, fundus firm at umbilicus Extremities - no edema, negative Daniel's bilaterally Assessment: POD 2 RLTCS Acute blood loss anemia Recovering well, hemodynamically stable Plan: Routine care. Encourage breast feeding. Encourage ambulation. Ferrous sulfate supplementation. Plan for discharge today Vitals - Labs Vital Signs - I&O Vital Signs Date Time Temp Pulse Resp B/P (MAP) Pulse Ox O2 Delivery O2 Flow Rate FiO2 02/14/22 03:00 36.2 80 16 134/76 (95) 98 Room Air 02/14/22 00:10 36.3 85 16 126/71 (89) 99 Room Air 02/13/22 20:05 36.5 86 18 140/65 (90) 98 Room Air 02/13/22 18:44 Room Air 02/13/22 18:40 37.3 16 148/84 (105) 97 Room Air 02/13/22 18:30 Room Air 02/13/22 18:25 37.5 18 129/81 (97) 97 Room Air 02/13/22 18:15 Room Air 02/13/22 18:10 37.5 18 130/93 (105) 98 Room Air 02/13/22 18:00 Room Air 02/13/22 17:52 37.1 16 128/79 (95) 98 Room Air 02/13/22 16:45 89 18 143/83 (103) Room Air 02/13/22 16:30 93 18 131/74 (93) Room Air 02/13/22 16:25 37.2 114 18 134/68 (90) Room Air 02/13/22 15:45 90 18 135/69 (91) Room Air 02/13/22 15:31 96 18 137/69 (91) Room Air 02/13/22 15:16 86 18 141/85 (103) Room Air 02/13/22 15:00 87 18 136/83 (100) Room Air 02/13/22 14:45 88 18 152/80 (104) Room Air 02/13/22 14:30 92 18 138/74 (95) Room Air 02/13/22 14:15 87 18 139/75 (96) Room Air 02/13/22 14:00 93 18 142/70 (94) Room Air 02/13/22 13:47 86 18 132/69 (90) Room Air 02/13/22 13:30 85 18 138/75 (96) Room Air 02/13/22 13:16 94 18 145/70 (95) Room Air 02/13/22 13:03 36.6 02/13/22 12:45 89 18 129/80 (96) Room Air 02/13/22 12:39 87 18 125/78 (94) Room Air 02/13/22 12:31 36.6 81 18 144/80 (101) Room Air 02/13/22 12:16 75 18 130/67 (88) Room Air 02/13/22 12:01 85 18 125/76 (92) Room Air 02/13/22 11:46 76 18 139/70 (93) Room Air 02/13/22 11:42 36.2 02/13/22 11:30 77 18 164/92 (116) Room Air 02/13/22 11:16 75 18 132/84 (100) Room Air 02/13/22 11:00 81 18 146/90 (108) Room Air 02/13/22 10:50 80 18 143/93 (110) Room Air 02/13/22 10:45 76 18 148/91 (110) Room Air 02/13/22 10:30 35.7 82 18 135/86 (102) Room Air 02/13/22 10:15 93 18 143/75 (97) Room Air 02/13/22 10:00 99 18 142/80 (100) Room Air 02/13/22 09:46 104 18 147/83 (104) Room Air 02/13/22 09:32 85 18 146/83 (104) Room Air 02/13/22 09:29 35.8 02/13/22 09:16 84 18 149/81 (103) Room Air 02/13/22 09:02 86 18 131/78 (95) Room Air 02/13/22 08:47 36.5 02/13/22 08:46 18 144/78 (100) Room Air 02/13/22 08:30 84 18 137/86 (103) Room Air 02/13/22 08:15 82 18 139/83 (101) Room Air 02/13/22 08:01 117 18 135/91 (106) Room Air 02/13/22 07:45 95 18 146/86 (106) Room Air 02/13/22 07:32 110 18 146/89 (108) Room Air 02/13/22 07:15 36.4 101 18 128/81 (97) Room Air I & O 02/14/22 07:00 Intake Total 2150 ml Output Total 1390 ml Balance 760 ml Labs Laboratory Tests 02/14/22 05:51: White Blood Count 14.8H, Red Blood Count 3.46L, Hemoglobin 10.6L, Hematocrit 31L , Mean Corpuscular Volume 89, Mean Corpuscular Hemoglobin 31, Mean Corpuscular Hemoglobin Concent 34, Red Cell Distribution Width 12.8, Platelet Count 233, Mean Platelet Volume 9.7, Immature Granulocyte % (Auto) 1, Neutrophils (%) (Auto) 83H, Lymphocytes (%) (Auto) 11L, Monocytes (%) (Auto) 5, Eosinophils (%) (Auto) 0, Basophils (%) (Auto) 0, Neutrophils # (Auto) 12.4H, Lymphocytes # (Auto) 1.6, Monocytes # (Auto) 0.7, Eosinophils # (Auto) 0.0, Basophils # (Auto) 0.0, Immature Granulocyte # (Auto) 0.1 Microbiology 02/12/22 Urine Culture - Preliminary, Resulted NO GROWTH LOTUS VASQUEZ DO 02/14/22 0727: Note Note Verification and Attestation of Medical Student E/M Service A medical student performed and documented this service in my presence. I reviewed and verified all information documented by the medical student and made modifications to such information, when appropriate. I personally performed the physical exam and medical decision making. Lotus Vasquez, Feb 14, 2022,07:27 CORRECTION POD 1 PLTCS OLVIN GLYNN Feb 14, 2022 07:11 LOTUS VASQUEZ DO Feb 14, 2022 07:27
--- NOTE | 2022-02-14 07:43 | Anesthesia-General Post-Op ---
MAC Patient Condition Mental Status/LOC: Same as Preop Cardiovascular: Satisfactory Nausea/Vomiting: Absent Respiratory: Satisfactory Pain: Controlled Complications: Absent Post Op Complications Complications None Follow Up Care/Instructions Patient Instructions None needed. Anesthesiology Discharge Order Discharge Order Patient is doing well, no complaints, stable vital signs, no apparent adverse anesthesia problems. No complications reported per nursing. BEAN MENDOZA CRNA Feb 14, 2022 07:43
[2022-02-14 09:20] VITALS: BP 123/61
[2022-02-14] MEDS: DOCUSATE SODIUM 100 MG (COLACE) CAP PO SCH ×3 (09:21→21:42)
[2022-02-14] MEDS: CATHETER FLUSH 10 ML SYR IV SCH ×2 (09:23→16:11)
[2022-02-14 16:17] VITALS: BP 135/70
[2022-02-14] MEDS: IBUPROFEN 600 MG (MOTRIN) TAB PO SCH (21:39)
[2022-02-14 21:42] VITALS: BP 149/82
[2022-02-15] MEDS: HYDROcodone/APAP 5 MG/325 MG (LORTAB) TAB PO PRN ×2 (01:35→07:00)
[2022-02-15] MEDS: IBUPROFEN 600 MG (MOTRIN) TAB PO SCH ×2 (03:21→08:39)
[2022-02-15 03:22] VITALS: BP 139/76
[2022-02-15] MEDS: DOCUSATE SODIUM 100 MG (COLACE) CAP PO SCH (08:39)
[2022-02-15 08:40] VITALS: BP 133/80
--- NOTE | 2022-02-15 09:46 | Postpartum Progress Note ---
Note Note Day # 2 Subjective: Patient is without complaints. Ambulating, voiding. Tolerating a regular diet without nausea or vomiting. Normal lochia. Pain is well controlled with oral pain medications. Physical Exam: General - Alert and oriented, no apparent distress Abdomen - Soft, appropriately tender to palpation, non-distended, fundus firm at umbilicus; incision c/d/i Extremities - no edema, negative Daniel's bilaterally Assessment: Post- day # 2, status post RLTCS Recovering well, hemodynamically stable Acute blood loss anemia Plan: Routine care. Encourage breast feeding. Encourage ambulation. Ferrous sulfate supplementation. Plan for discharge today Vitals - Labs Vital Signs - I&O Vital Signs Date Time Temp Pulse Resp B/P (MAP) Pulse Ox O2 Delivery O2 Flow Rate FiO2 02/15/22 03:22 36.4 83 18 139/76 (97) 97 Room Air 02/14/22 21:42 36.2 82 18 149/82 (104) 97 Room Air 02/14/22 16:17 36.7 67 18 135/70 (91) 96 Room Air Labs Microbiology 02/12/22 Urine Culture - Final, Complete NO GROWTH ALICIA LICONA APRN Feb 15, 2022 09:46
== END 2022-02-15 12:22 | disposition home or self-care (01) | DRG 787 ==
LOC: LDRP 18:55
PROVIDERS: ADMIT Obstetrics & Gynecology; ATTEND Obstetrics & Gynecology
PROC: 10D00Z1 Extraction of Products of Conception, Low, Open Approach (ICD-10-PCS; principal; 2022-02-13 16:50)
DX: O99.892 Other specified diseases and conditions complicating childbirth (principal); D62 Acute posthemorrhagic anemia; N20.0 Calculus of kidney; O90.81 Anemia of the puerperium; O62.0 Primary inadequate contractions; O33.9 Maternal care for disproportion, unspecified; Z37.0 Single live birth; Z3A.39 39 weeks gestation of pregnancy
CPT/HCPCS: 36415; 81000; 85025; 86780; 86850; 86900; 86901; 87088